=== PATIENT | female | born 1995 | race Caucasian/White ===

== ENCOUNTER 2020-01-21 18:15 | Emergency (ER) | payer SELFPAY ==
[~2020-01-21] VITALS: Ht 157.5 cm; Wt 55.0 kg
[2020-01-21 18:31] VITALS: TEMP 98.2
[2020-01-21 19:02] LABS: COLLECTION METHOD CLEAN CATCH
[2020-01-21 19:18] LABS: BASO # 0.1 (0.0-0.2); BASO % 1.7 % (0.0-2.0); EOS % 0.2 % (0-4.0); GRAN # 1.5 (1.4-6.5); GRAN % 37.1 % (42.2-75.2); HEMATOCRIT 42.8 % (37.0-47.0); HEMOGLOBIN 14.9 g/dl (12.5-16.0); LYMPH # 1.9 (1.2-3.4); LYMPH % 45.8 % (20.0-51.0); MEAN CELL VOLUME 91 fl (80.0-100.0); MEAN CORPUSCULAR HEMOGLOBIN 32 pg (27.0-31.0); MEAN CORPUSCULAR HGB CONC 35 g/dl (33.0-37.0); MEAN PLATELET VOLUME 9.3 fl (7.4-10.4); MONO # 0.6 (0.1-0.6); PLATELET COUNT 279 K/mm3 (130-400); RED BLOOD COUNT 4.72 M/mm3 (4.10-5.30); REDCELL DISTRIBUTION WIDTH-CV 12.7 % (11.5-14.5)
[2020-01-21 19:20] LABS: ALANINE AMINOTRANSFERASE 43 U/L (4-34); ALBUMIN 4.7 gm/dL (3.5-5.0); ALKALINE PHOSPHATASE 91 U/L (50-136); ANION GAP 12 mmol/L (7-16); AST,SGOT 51 U/L (15-37); BILIRUBIN,TOTAL 1.1 mg/dL (0.0-1.0); BLOOD UREA NITROGEN 7 mg/dL (7-17); CARBON DIOXIDE 25 mmol/L (22-30); CHLORIDE 104 mmol/L (98-107); CREATININE, serum 0.57 (0.52-1.25); GLUCOSE 95 mg/dL (74-106); LIPASE 48 U/L (23-300); POTASSIUM 3.8 mmol/L (3.4-5.0); SODIUM 141 mmol/L (137-145); TOTAL PROTEIN 7.6 gm/dL (6.4-8.2)
[2020-01-21 19:23] LABS: C-REACTIVE PROTEIN < 0.5 mg/dL (0.0-0.9)
[2020-01-21 19:25] LABS: ALCOHOL(ethanol),MEDICAL 379 mg/dL
[2020-01-21 19:34] LABS: TRICYCLIC ANTIDEPRESS URINE NEGATIVE
[2020-01-21 20:06] LABS: MUCOUS Present /lpf; PH 7 (5-8); URINE APPEARANCE Clear; URINE BACTERIA Rare /hpf; URINE BILIRUBIN Negative (NEGATIVE); URINE BLOOD 3+ (NEGATIVE); URINE COLOR Yellow; URINE GLUCOSE Negative (NEGATIVE); URINE KETONE Negative (NEGATIVE); URINE LEUKOCYTE ESTERASE Negative (NEGATIVE); URINE NITRATE Negative (NEGATIVE); URINE PROTEIN(semi-quant) 1+ (NEGATIVE); URINE RBC 0-2 /hpf
[2020-01-21 20:40] VITALS: BP 119/72; PULSE 102
== END 2020-01-21 20:35 | disposition home or self-care (01) ==
LOC: COL.ER 18:15
PROVIDERS: Physician Assistant
DX: R10.33 Periumbilical pain (principal); F10.129 Alcohol abuse with intoxication, unspecified; Y90.8 Blood alcohol level of 240 mg/100 ml or more
CPT/HCPCS: J1885; J7030

== ENCOUNTER 2020-02-04 02:14 | Inpatient (IN) | payer SELFPAY ==
[~2020-02-04] VITALS: Ht 157.5 cm; Wt 57.3 kg
[2020-02-04 02:45] LABS: BASO % 0.7 % (0.0-2.0); GRAN # 4.2 (1.4-6.5); GRAN % 74.9 % (42.2-75.2); HEMATOCRIT 45.1 % (37.0-47.0); HEMOGLOBIN 15.2 g/dl (12.5-16.0); LYMPH % 17.1 % (20.0-51.0); MEAN CELL VOLUME 94 fl (80.0-100.0); MEAN CORPUSCULAR HEMOGLOBIN 32 pg (27.0-31.0); MEAN CORPUSCULAR HGB CONC 34 g/dl (33.0-37.0); MEAN PLATELET VOLUME 9.5 fl (7.4-10.4); MONO # 0.4 (0.1-0.6); MONO % 6.8 % (1.7-9.3); PLATELET COUNT 233 K/mm3 (130-400); REDCELL DISTRIBUTION WIDTH-CV 13.3 % (11.5-14.5)
[2020-02-04 02:55] LABS: ACETAMINOPHEN < 10 ug/mL (10-30); ALANINE AMINOTRANSFERASE 465 U/L (4-34); ALBUMIN 5.1 gm/dL (3.5-5.0); ALKALINE PHOSPHATASE 134 U/L (50-136); ANION GAP 22 mmol/L (7-16); AST,SGOT 665 U/L (15-37); BILIRUBIN,TOTAL 1.1 mg/dL (0.0-1.0); BLOOD UREA NITROGEN 13 mg/dL (7-17); CALCIUM 8.7 mg/dL (8.4-10.2); CARBON DIOXIDE 17 mmol/L (22-30); CHLORIDE 104 mmol/L (98-107); CREATININE, serum 0.74 (0.52-1.25); GLUCOSE 75 mg/dL (74-106); MAGNESIUM 2.1 mg/dL (1.6-2.3); POTASSIUM 3.9 mmol/L (3.4-5.0); SALICYLATE < 1.0 mg/dL; SODIUM 143 mmol/L (137-145)
[2020-02-04 03:02] LABS: ALCOHOL(ethanol),MEDICAL 425 mg/dL
[2020-02-04 03:04] LABS: ARTERIAL BLD GAS O2 SATURATION 97.5 % (92-100); ARTERIAL BLD GAS TCO2 CT 14.5; ARTERIAL BLOOD GAS BASE EXCESS -10.3 (-2-2); ARTERIAL BLOOD GAS HCO3 13.7 meq/L (22-26); ARTERIAL BLOOD GAS PCO2 26.3 mmHg (35-45); ARTERIAL BLOOD GAS PO2 99.8 mmHg (80-100); ARTERIAL BLOOD GAS pH 7.34 (7.35-7.45)
[2020-02-04 03:50] LABS: INR 0.9 (0.8-3.0)
[2020-02-04 03:52] LABS: PARTIAL THROMBOPLASTIN TIME 24.9 SECONDS (26.0-37.0)
[2020-02-04 04:37] LABS: COLLECTION METHOD CLEAN CATCH
[2020-02-04 04:49] LABS: MUCOUS Present /lpf; PH 5 (5-8); SQUAMOUS EPITHELIAL 20-50 /hpf; URINE APPEARANCE Cloudy; URINE BACTERIA None Seen /hpf; URINE BILIRUBIN Negative (NEGATIVE); URINE BLOOD 3+ (NEGATIVE); URINE COLOR Yellow; URINE GLUCOSE Negative (NEGATIVE); URINE KETONE 1+ (NEGATIVE); URINE LEUKOCYTE ESTERASE Negative (NEGATIVE); URINE NITRATE Negative (NEGATIVE); URINE PROTEIN(semi-quant) 1+ (NEGATIVE); URINE RBC 0-2 /hpf; URINE UROBILINOGEN Negative (NEGATIVE)
[2020-02-04 04:50] LABS: ALBUMIN 4.4 gm/dL (3.5-5.0); CALCIUM 7.9 mg/dL (8.4-10.2); CREATININE, serum 0.66 (0.52-1.25); POTASSIUM 4.2 mmol/L (3.4-5.0)
[2020-02-04 04:55] LABS: TRICYCLIC ANTIDEPRESS URINE NEGATIVE
--- NOTE | 2020-02-04 05:28 | NUR ---
report received from BECKIE Knapp. awaiting fpr pt's arrival in unit. smokehouse operator contacted fof the banana bag and calcium gluconate.
[2020-02-04 05:39] VITALS: BP 139/95; PULSE 130; TEMP 97.8
--- NOTE | 2020-02-04 07:00 | NUR ---
Bedside shift report received from BECKIE Ponce. Patient is awake, alert, but restless. Patient has visible tremors and expresses that she is quite anxious. Vital reflect this with tachycardia and slightly elevated SBP in the 130's. Full assessment completed. Bed in lowest position. Side rails up x2. Call light and personal items within reach. Patient has no other complaints or concerns at this time other than being anxious.
--- NOTE | 2020-02-04 07:45 | NUR ---
REPORT GIVEN TO BECKIE TAFOYA.
--- NOTE | 2020-02-04 07:46 | NUR ---
0535 - PT ARRIVED IN UNIT, TRANSFERS INDEPENDENTLY, ALERT AND ORIENTED X 4, DENIES ANY PAIN OR SOB. PT ORIENTED TO ROOM AND VISITATION POLICY, VERBALIZED UNDERSTANDING. CALL LIGHT WITHIN REACH.
[2020-02-04 08:00] VITALS: BP 112/61; PULSE 118; TEMP 99
[2020-02-04 10:54] LABS: CALCIUM 8.1 mg/dL (8.4-10.2); CREATININE, serum 0.55 (0.52-1.25); POTASSIUM 4.2 mmol/L (3.4-5.0)
--- NOTE | 2020-02-04 11:34 | NUR ---
SW attended clinical rounds. The patient presented to the hospital, due to altered mental status and alcohol intoxication. The patient reports that she was on the phone with her parents and her father noticed something was wrong and contacted the police. She was then transferred to the hospital. The patient denies any suicidal thoughts. She denies any drug use. She reports that she only drinks alcohol three days a week. DONA then followed up with the patient to discuss discharge plan. The patient lives in [place] with her boyfriend, Denis. She works at a [employer]. Her parents: Fran (ph#[phone]) and Kay England live in [place]. She reports independence with ADLs and does not have any DME. The patient does not have a PCP. She was unsure if she wanted to get set up with a PCP or at a clinic at this time. She receives her medications at [facility] in [facility] and she reports no difficulties obtaining her meds. The patient is self pay. Financial Counseling has been consulted. The patient plans to return back home with her boyfriend upon discharge. SW discussed the patient's alcohol use and treatment options. The patient reports that this was a lesson and that she never wants this to happen again. She states that her boyfriend was able to get her drinking down to the three days a week, usually on the weekend, and that she is not interested in any outpatient/inpatient treatment at this time. She states that she had an around 2-3 months ago and still feels angry about that. She reports that last night she just kept drinking to suppress the anger and the thoughts of the . She reports she was talking to a counselor about this and that it was helpful. She states that she may reach out to this counselor after she discharges. She was not interested in any resources for alcohol treatment or counselor at this time. She reports that her parents plan to come from [place] and pick her up from the hospital when ready to discharge. SW to continue to follow as needed.
[2020-02-04 12:00] VITALS: BP 117/91; PULSE 113; TEMP 98.5
[2020-02-04 16:00] VITALS: BP 117/80; PULSE 97; TEMP 98.2
--- NOTE | 2020-02-04 19:50 | NUR ---
Bedside shift report given to BECKIE Mckee. Patient has had no acute changes throughout the shift and has no complaints or concerns. Care handed over at this time.
[2020-02-04 20:00] VITALS: BP 133/76; PULSE 126; TEMP 97.9
[2020-02-04 21:14] LABS: CALCIUM 8.5 mg/dL (8.4-10.2); CREATININE, serum 0.44 (0.52-1.25); POTASSIUM 3.8 mmol/L (3.4-5.0); TOTAL PROTEIN 6.7 gm/dL (6.4-8.2)
[2020-02-04 21:15] LABS: BASO % 1.1 % (0.0-2.0); EOS % 0.3 % (0-4.0); GRAN # 2.2 (1.4-6.5); GRAN % 60.8 % (42.2-75.2); HEMATOCRIT 37.2 % (37.0-47.0); LYMPH # 0.9 (1.2-3.4); MEAN CELL VOLUME 93 fl (80.0-100.0); MEAN CORPUSCULAR HEMOGLOBIN 32 pg (27.0-31.0); MEAN CORPUSCULAR HGB CONC 35 g/dl (33.0-37.0); MEAN PLATELET VOLUME 9.7 fl (7.4-10.4); MONO # 0.5 (0.1-0.6); MONO % 13.8 % (1.7-9.3); PLATELET COUNT 174 K/mm3 (130-400); RED BLOOD COUNT 4.01 M/mm3 (4.10-5.30); REDCELL DISTRIBUTION WIDTH-CV 13.6 % (11.5-14.5)
[2020-02-04 21:39] LABS: BILIRUBIN,DIRECT 0.1 mg/dL (0.0-0.4); BILIRUBIN,TOTAL 1.7 mg/dL (0.0-1.0)
[2020-02-04 21:40] LABS: BILIRUBIN UNCONJUGATED 1.6 mg/dL (0.0-1.1)
[2020-02-04 21:45] LABS: HEMOGLOBIN 12.9 g/dl (12.5-16.0)
[2020-02-05] VITALS (7 sets, daily range): BP systolic 117–131; BP diastolic 80–98; PULSE 69–112; TEMP 98–98.4
[2020-02-05 05:57] LABS: ANION GAP 6 mmol/L (7-16); CALCIUM 8.8 mg/dL (8.4-10.2); CARBON DIOXIDE 26 mmol/L (22-30); CHLORIDE 103 mmol/L (98-107); CREATININE, serum 0.44 (0.52-1.25); GLUCOSE 96 mg/dL (74-106); POTASSIUM 3.5 mmol/L (3.4-5.0); SODIUM 136 mmol/L (137-145)
[2020-02-05 06:05] LABS: BLOOD UREA NITROGEN < 2 mg/dL (7-17)
[2020-02-05 06:53] LABS: ALBUMIN 3.6 gm/dL (3.5-5.0); BILIRUBIN UNCONJUGATED 1.6 mg/dL (0.0-1.1); BILIRUBIN,DIRECT 0.1 mg/dL (0.0-0.4); BILIRUBIN,TOTAL 1.6 mg/dL (0.0-1.0); TOTAL PROTEIN 6.2 gm/dL (6.4-8.2)
--- NOTE | 2020-02-05 08:53 | NUR ---
Assessment completed, patient is drowsy but easy to arouse, vital signs stable, denies pain or discomfort, patient is pleasant and cooperative, she is eating a little of her breakfast but does not have a huge appetite, she scored 3/10 on CIWA this morning, lab results from this morning are relativley unchanged from yesterday, she requested a warm blanket and I discussed plan of care for the day, she verbalzied understanding and deneis other needs at his norman
--- NOTE | 2020-02-05 19:11 | NUR ---
Patient transferring to Medical room 312, I have given report to BECKIE Shahid, transferred patient up via wheelchair, I have also spoke with her father per patient request and updated on plan of care
--- NOTE | 2020-02-05 20:40 | NUR ---
This nurse went to check VS on patient at approximately 2014. At that time, patient was crying. This nurse shut door for privacy and sat with patient for a while, allowed patient to talk. Afterwards, patient stated that she felt better. Patient had said that she had just been holding in so many emotions, and they all seemed to turn to anger, and just needed to cry. Denies having pain and discomfort. Did state that she was feeling anxious. VS obtained, and patient given 0.5 mg IV Ativan per order for detox protocol. Peripher IV to left wrist and left AC. Denies SOB and dyspnea. LS CTA. Respirations even and unlabored. HRR. Telemetry in place. Capillary refill less than 3 seconds. Non-tenting skin turgor. BSAx4. Abdomen soft and non-tender. No edema. Voices no questions, needs, or concerns at this time. Given snacks as requested. Encouraged to call for assistance if she needed anything, even if it was just to talk. Patient thankful and voiced understanding. In bed with call light within reach.
--- NOTE | 2020-02-05 21:20 | NUR ---
Checked on patient to see how she was doing. Patient smiling, stated that she is feeling ok, and denies having any questions, needs, or concerns at this time. In recliner. Call light within reach.
--- NOTE | 2020-02-05 22:39 | NUR ---
Patient states that she is feeling ok at this time, just a little nervous about the next few nights. States that she will be home alone at night. Encouraged to see if her boyfriend or parents can stay with her, and stated she would think about it.
[2020-02-06 00:39] VITALS: BP 124/86; PULSE 82; TEMP 98.3
[2020-02-06 02:26] VITALS: BP 115/101; PULSE 103; TEMP 98.9
--- NOTE | 2020-02-06 02:34 | NUR ---
Patient scored a 5 on last alcohol detox protocol, but is not wanting PRN Ativan at this time, stating that she is feeling well and does not think she needs it. Encouraged to let this nurse know if she wants it, and voiced understanding.
[2020-02-06 04:00] VITALS: BP 126/100; PULSE 125; TEMP 98.8
[2020-02-06 05:33] VITALS: BP 114/86; PULSE 100; TEMP 97.9
--- NOTE | 2020-02-06 05:49 | NUR ---
Patient has been given PRN Ativan twice this shift. Denies having pain and discomfort. Awake most of the night, but stated that it was because she had been sleeping all day. Continues to report that she is nervous about going home and being alone at night. Resting in bed with call light within reach.
[2020-02-06 08:05] VITALS: BP 111/68; PULSE 84; TEMP 98.1
--- NOTE | 2020-02-06 08:13 | NUR ---
PATIENT SITTING UP IN BED PLAYING ON PHONE. ATTITUDE CALM AND PLEASANT. A/O X4. DENIES C/O PAIN OR DISCOMFORT. DENIES NEEDS OR CONCERNS.
--- NOTE | 2020-02-06 10:30 | NUR ---
The patient is to tentatively discharge today, 02/05. DONA contacted [facility] for a follow-up appointment. The appointment is 02/10 at 10:30. DONA contacted [facility] to set up appointment. Modesta from [facility] states she will do the initial intake and initial telephealth session today at 2:00 and 3:00, respectively. DONA informed the patient. There are no additional needs at this time.
--- NOTE | 2020-02-06 11:55 | NUR ---
PATIENT DC TO HOME ACCOMPANIED BY PARENTS @ 1140. AMBULATED OFF UNIT ACCOMPANIED BY THIS NURSE. PRINTED DC INSTRUCTIONS REVIEWED WITH PATIENT. ALL QUESTIONS AND CONCERNS ADRESSED DURING REVIEW.
== END 2020-02-06 11:40 | disposition home or self-care (01) | DRG 918 ==
LOC: COL.ER 02:14 → IMCU 04:30 → ICU 02-05 10:55 → IMCU 02-05 10:55 → MEDICAL 02-05 19:18
PROVIDERS: Emergency Medicine; Nurse Practitioner; Nurse Practitioner Family; ADMIT Student in an Organized Health Care Education/Training Program
DX: T51.0X2A Toxic effect of ethanol, intentional self-harm, initial encounter (principal); E87.2 Acidosis; R65.10 Systemic inflammatory response syndrome (SIRS) of non-infectious origin without acute organ dysfunction; E87.1 Hypo-osmolality and hyponatremia; R45.851 Suicidal ideations; F10.14 Alcohol abuse with alcohol-induced mood disorder; F10.129 Alcohol abuse with intoxication, unspecified; Y90.8 Blood alcohol level of 240 mg/100 ml or more; R00.0 Tachycardia, unspecified; E16.2 Hypoglycemia, unspecified; E83.51 Hypocalcemia; R74.0 Nonspecific elevation of levels of transaminase and lactic acid dehydrogenase [LDH]; F18.10 Inhalant abuse, uncomplicated
CPT/HCPCS: 99222-AI; 99231-AI; 99239; J0610; J1650; J2060; J3411; J3475; J7030

== ENCOUNTER 2021-04-13 15:33 | Emergency (ER) | payer SELFPAY ==
[~2021-04-13] VITALS: Ht 157.5 cm; Wt 59.1 kg
[2021-04-13 15:50] VITALS: TEMP 98.3
[2021-04-13 17:10] LABS: COLLECTION METHOD CLEAN CATCH
[2021-04-13 17:15] LABS: MUCOUS Present /lpf; PH 5 (5-8); URINE APPEARANCE Clear; URINE BACTERIA Rare /hpf; URINE BILIRUBIN Negative (NEGATIVE); URINE BLOOD 1+ (NEGATIVE); URINE COLOR Yellow; URINE GLUCOSE Negative (NEGATIVE); URINE KETONE 1+ (NEGATIVE); URINE LEUKOCYTE ESTERASE Negative (NEGATIVE); URINE NITRATE Negative (NEGATIVE); URINE PROTEIN(semi-quant) 2+ (NEGATIVE); URINE RBC 0-2 /hpf; URINE UROBILINOGEN Negative (NEGATIVE)
[2021-04-13 17:23] LABS: TRICYCLIC ANTIDEPRESS URINE NEGATIVE
[2021-04-13 18:58] LABS: BASO % 0.6 % (0.0-2.0); EOS # 0.1 (0.0-0.7); EOS % 1.7 % (0-4.0); GRAN # 3.6 (1.4-6.5); GRAN % 54.3 % (42.2-75.2); HEMATOCRIT 47.5 % (37.0-47.0); HEMOGLOBIN 16.2 g/dl (12.5-16.0); LYMPH # 2.5 (1.2-3.4); LYMPH % 38.4 % (20.0-51.0); MEAN CELL VOLUME 93 fl (80.0-100.0); MEAN CORPUSCULAR HEMOGLOBIN 32 pg (27.0-31.0); MEAN CORPUSCULAR HGB CONC 34 g/dl (33.0-37.0); MEAN PLATELET VOLUME 9.4 fl (7.4-10.4); MONO # 0.3 (0.1-0.6); MONO % 4.7 % (1.7-9.3); PLATELET COUNT 282 K/mm3 (130-400); REDCELL DISTRIBUTION WIDTH-CV 12.5 % (11.5-14.5)
[2021-04-13 19:09] LABS: ALBUMIN 5.2 gm/dL (3.5-5.0); CALCIUM 9.1 mg/dL (8.4-10.2); CREATININE, serum 0.59 (0.52-1.25); MAGNESIUM 2.4 mg/dL (1.6-2.3); POTASSIUM 4.3 mmol/L (3.4-5.0); TOTAL PROTEIN 8.8 gm/dL (6.4-8.2)
[2021-04-13 21:25] VITALS: BP 121/84; PULSE 96
== END 2021-04-13 21:29 | disposition home or self-care (01) ==
LOC: COL.ER 15:33
PROVIDERS: Emergency Medicine; Nurse Practitioner
DX: F10.129 Alcohol abuse with intoxication, unspecified (principal); F17.210 Nicotine dependence, cigarettes, uncomplicated; Y90.8 Blood alcohol level of 240 mg/100 ml or more
CPT/HCPCS: J7030

== ENCOUNTER 2022-04-21 10:40 | Emergency (ER) | payer MEDICAID ==
[~2022-04-21] VITALS: Ht 157.5 cm; Wt 70.0 kg
[2022-04-21 10:42] VITALS: TEMP 97.6
[2022-04-21 11:29] LABS: BASO % 0.5 % (0.0-2.0); EOS # 0.1 K/mm3 (0.0-0.7); EOS % 0.6 % (0.0-4.0); GRAN # 6.5 K/mm3 (1.4-6.5); GRAN % 73.8 % (42.2-75.2); HEMOGLOBIN 11.2 g/dl (12.5-16.0); LYMPH # 1.6 K/mm3 (1.2-3.4); LYMPH % 18.1 % (20.0-51.0); MEAN CELL VOLUME 93 fl (80.0-100.0); MEAN CORPUSCULAR HEMOGLOBIN 32 pg (27-31); MEAN CORPUSCULAR HGB CONC 34 g/dl (33.0-37.0); MEAN PLATELET VOLUME 10.1 fl (7.4-10.4); MONO # 0.6 K/mm3 (0.1-0.6); MONO % 6.4 % (1.7-9.3); PLATELET COUNT 223 K/mm3 (130-400); RED BLOOD COUNT 3.56 M/mm3 (4.10-5.30); REDCELL DISTRIBUTION WIDTH-CV 11.9 % (11.5-14.5)
[2022-04-21 11:34] LABS: HEMATOCRIT 33.2 % (37.0-47.0)
[2022-04-21 11:46] LABS: ALBUMIN 2.7 gm/dL (3.5-5.0); ANION GAP 9 mmol/L (7-16); BLOOD UREA NITROGEN 11 mg/dL (7-19); CALCIUM 8.4 mg/dL (8.4-10.2); CARBON DIOXIDE 22 mmol/L (22-29); CHLORIDE 108 mmol/L (98-107); CREATININE, serum 0.54 mg/dL (0.57-1.11); GLUCOSE 78 mg/dL (70-99); MAGNESIUM 1.7 mg/dL (1.6-2.6); POTASSIUM 3.7 mmol/L (3.5-4.5); SODIUM 139 mmol/L (136-145)
[2022-04-21 12:10] LABS: TROPONIN-I < 0.010 ng/mL (0.00-0.033)
[2022-04-21 13:17] VITALS: BP 108/72; PULSE 80
== END 2022-04-21 13:20 | disposition home or self-care (01) ==
LOC: COL.ER 10:40
PROVIDERS: Emergency Medicine
DX: O99.891 Other specified diseases and conditions complicating pregnancy (principal); R55 Syncope and collapse; Z3A.33 33 weeks gestation of pregnancy
CPT/HCPCS: J7030

== ENCOUNTER 2022-05-15 09:19 | Emergency (ER) | payer MEDICAID ==
[~2022-05-15] VITALS: Ht 157.5 cm; Wt 71.4 kg
[2022-05-15 09:32] VITALS: TEMP 98
[2022-05-15 10:05] LABS: COLLECTION METHOD CLEAN CATCH
[2022-05-15 10:11] LABS: BASO % 0.4 % (0.0-2.0); EOS % 0.2 % (0.0-4.0); GRAN # 7.6 K/mm3 (1.4-6.5); GRAN % 80.7 % (42.2-75.2); HEMOGLOBIN 11.7 g/dl (12.5-16.0); LYMPH # 1.1 K/mm3 (1.2-3.4); LYMPH % 12.1 % (20.0-51.0); MEAN CELL VOLUME 90 fl (80.0-100.0); MEAN CORPUSCULAR HEMOGLOBIN 30 pg (27-31); MEAN CORPUSCULAR HGB CONC 33 g/dl (33.0-37.0); MEAN PLATELET VOLUME 10.5 fl (7.4-10.4); MONO # 0.6 K/mm3 (0.1-0.6); MONO % 6.1 % (1.7-9.3); PLATELET COUNT 230 K/mm3 (130-400); RED BLOOD COUNT 3.92 M/mm3 (4.10-5.30)
[2022-05-15 10:13] LABS: HEMATOCRIT 35.1 % (37.0-47.0)
[2022-05-15 10:18] LABS: URINE BACTERIA Rare /hpf (NONE SEEN); URINE WBC 0-2 /hpf (0-2)
[2022-05-15 10:19] LABS: PH 7.5 (5.0-8.5); URINE APPEARANCE Clear (CLEAR/HAZY); URINE COLOR Yellow (YELLOW); URINE GLUCOSE Negative (NEGATIVE); URINE KETONE Negative (NEGATIVE); URINE PROTEIN(semi-quant) Negative (NEGATIVE)
[2022-05-15 10:20] LABS: URINE BLOOD TRACE-INTACT (NEGATIVE); URINE NITRATE Negative (NEGATIVE); URINE UROBILINOGEN 0.2 E.U/dL (0.2-1.0)
[2022-05-15 10:28] LABS: ALBUMIN 2.8 gm/dL (3.5-5.0); BILIRUBIN,TOTAL 0.9 mg/dL (0.2-1.2); C-REACTIVE PROTEIN 0.09 mg/dL (0.00-0.50); CALCIUM 9.3 mg/dL (8.4-10.2); CREATININE, serum 0.62 mg/dL (0.57-1.11); POTASSIUM 3.9 mmol/L (3.5-4.5); TOTAL PROTEIN 6.2 gm/dL (6.2-8.1)
--- NOTE | 2022-05-15 10:32 | NUR ---
1010- Pt placed on EFM and TOCO, tracing well. Pt is a G2L0 at 38+3, Pt of Dr Harley. Pt denies VB/LOF/UCs. +FM per Pt and heard by this RN on EFM. 1032- Category I FHR tracing, accels x2 and no decels. EFM and TOCO off. This RN to nurses station, updates ED physician.
[2022-05-15 10:45] LABS: ERYTHROCYTE SEDIMENTATION RATE 32 mm/hr (0-20)
[2022-05-15 11:30] VITALS: BP 110/72; PULSE 82
== END 2022-05-15 11:32 | disposition home or self-care (01) ==
LOC: COL.ER 09:19
PROVIDERS: Emergency Medicine
DX: O26.893 Other specified pregnancy related conditions, third trimester (principal); R10.9 Unspecified abdominal pain; O99.113 Other diseases of the blood and blood-forming organs and certain disorders involving the immune mechanism complicating pregnancy, third trimester; R70.0 Elevated erythrocyte sedimentation rate; D72.828 Other elevated white blood cell count; Z3A.37 37 weeks gestation of pregnancy

== ENCOUNTER 2022-06-07 08:48 | Inpatient (IN) | payer MEDICAID ==
[~2022-06-07] VITALS: Ht 157.5 cm; Wt 71.4 kg
--- NOTE | 2022-06-07 19:05 | NUR ---
1905- PT PRESENTS TO LDR FOR SCHEDULED CYTOTEC INDUCTION. AMBULATORY TO ROOM LR6, PT CHANGES INTO HER OWN GOWN. 1910- ROLES CALLED CHARTED. ORDERS FOR INDUCTION GIVEN. 1913- EFM X2 APPLIED. PT DENIES LEAKING FLUID, VAGINAL BLEEDING OR CONSISTENT CONTRACTIONS. PT IS FEELING BABY MOVE NORMALLY. PLAN OF CARE FOR INDUCTION DISCUSSED AND QUESTIONS ANSWERED. 0- IV START TO LEFT HAND CHARTED. BLOOD DRAWN FOR LAB. LR BOLUS STARTED. 2014- CONSENTS SIGNED. 2019- SVE BY THIS NURSE , CYTOTEC PLACED ORDERED. DISCUSSED WITH PT PLAN FOR STAYING RECLINED FOR 2 HOURS, WHEN SHE CAN POSSIBLE HAVE A SNACK, AND QUESTIONS ARE ANSWERED. 2044- NURSING ADMISSION HISTORY AND ASSESSMENT COMPLETE. 2217- PT STATES SHE IS FEELING CRAMPY AT THIS TIME. SHE NEEDS TO GET UP TO BATHROOM. PT ALSO REQUESTS SOME TYLENOL FOR DISCOMFORT. DISCUSSED PAIN MANAGEMENT OPTIONS WITH PT. SHE DOES NOT HAVE ANY TYLENOL ORDERED BUT IS WILLING TO TRY VISTARIL AT THIS TIME INSTEAD. 2225- PT BACK ON MONITORS. 2230- VISTARIL AND JELLO PROVIDED PER PT REQUEST. 2250- PT UP TO BATHROOM AGAIN. STATES SHE FEELS BETTER STANDING AT SIDE OF BED. BIRTHING BALL OFFERED AND PT TRIES THIS BUT DOES NOT LIKE IT. ALSO OFFERED CHAIRS, FOOTSTOOLS AND OTHER POSITIONING DEVICES, BUT PT PREFERS TO JUST STAND. SHE IS NOW BREATHING THROUGH HER CONTRACTIONS SOME. 2305- PT BACK ON MONITORS. SHE CONTINUES TO STAND AT SIDE OF BED. 2318- PT REQUESTS TO GO BACK TO BATHROOM, STATES SHE FEELS BETTER WHEN SHE IS ON THE TOILET. 2342- PT BACK ON MONITORS STANDING AT EDGE OF BED. 2350- PT HAS EPISODE OF VOMITTING. DISCUSSED WITH PT PLAN FOR CHECKING HER CERVIX AROUND 0020 AND THEN BEING ABLE TO DETERMINE WHAT OTHER PAIN MANAGEMENT OPTIONS THE PT HAS AT THAT TIME. PT IS AGREEABLE WITH THIS PLAN. 2357- PT BACK UP TO BATHROOM. 3- PT BACK IN BED ON MONITORS. 34- SVE BY THIS NURSE . NURSE DISCUSSES PAIN MANAGEMENT OPTIONS INCLUDING EPIDURAL AND IV PAIN MEDICATION. PT WISHES TO PROCEED WITH PAIN MEDICAITON AT THIS TIME. 56- ROLES CALLD CHARTED. ORDERS RECEIVED.
[2022-06-07 19:30] VITALS: BP 126/84; PULSE 114; TEMP 98.9
[2022-06-07 19:53] LABS: BASO % 0.5 % (0.0-2.0); EOS % 0.4 % (0.0-4.0); GRAN # 5.4 K/mm3 (1.4-6.5); GRAN % 69.5 % (42.2-75.2); HEMOGLOBIN 12.1 g/dl (12.5-16.0); LYMPH # 1.7 K/mm3 (1.2-3.4); LYMPH % 21.5 % (20.0-51.0); MEAN CELL VOLUME 89 fl (80.0-100.0); MEAN CORPUSCULAR HEMOGLOBIN 30 pg (27-31); MEAN CORPUSCULAR HGB CONC 34 g/dl (33.0-37.0); MEAN PLATELET VOLUME 10.9 fl (7.4-10.4); MONO # 0.6 K/mm3 (0.1-0.6); MONO % 7.6 % (1.7-9.3); PLATELET COUNT 223 K/mm3 (130-400); RED BLOOD COUNT 3.99 M/mm3 (4.10-5.30); REDCELL DISTRIBUTION WIDTH-CV 14.1 % (11.5-14.5)
[2022-06-07 19:54] LABS: HEMATOCRIT 35.6 % (37.0-47.0)
[2022-06-07 20:30] VITALS: BP 125/83; PULSE 80
[2022-06-07] MEDS ORDERED: QUALITY CHOICE1 TA7 (20:51)
[2022-06-07] MEDS ORDERED: MASON NATURAL2000 IU PO (20:52)
[2022-06-07] MEDS ORDERED: PEPCID AC 10MG10 MG PO (20:52)
[2022-06-07 21:00] VITALS: BP 121/84; PULSE 81
[2022-06-07 21:30] VITALS: BP 120/85; PULSE 85
[2022-06-07 22:00] VITALS: BP 124/82; PULSE 77
[2022-06-07 22:30] VITALS: BP 135/94; PULSE 81
[2022-06-08] VITALS (67 sets, daily range): BP systolic 94–147; BP diastolic 53–99; PULSE 68–122; TEMP 97.2–99
--- NOTE | 2022-06-08 01:11 | NUR ---
0111- PT BACK TO BED AND ON MONITORS. PT UPDATED ON PLAN FOR EPIDURAL AT THIS TIME AND PT IS IN AGREEMENT WITH THIS. LR BOLUS STARTED FOR EPIDURAL PLACEMENT. 0130- BASSAM ELDER CALLED FOR EPIDURAL. 0140- PT UP TO BATHROOM. 0145- BASSAM ELDER AT BEDSIDE FOR EPIDURAL. PT POSITIINED SITTING UP ON EDGE OF BED. BASSAM DISCUSSES RISK AND BENIFITS. TIME OUT COMPLETE. 0155- EPIDURAL SINGLE SHOT. 0205- EPIDURAL PROCEDURE COMPLETE. PT TOLERATED WELL. PT POSITIONED IN LEFT TILT WITH PILLOWS FOR COMFORT. MONITORS ADJUSTED. 0345- PT REPORTS SHE IS COMFORTABLE WITH HER EPIDURAL. SVE BY THIS NURSE . BLOOM CATHETER PLACED WITHOUT DIFFICULTY. PT POSITIONED IN RIGHT TILT FOR HER COMFORT. 0440- PT SITTING UP INTERMITTENTLY FOR HER COMFORT. EFM TRACING INTERMITTENTLY. 0455- PT COMPLAINS OF LEFT LEG PAIN. SHE WOULD LIKE TO TURN TO LEFT TILT AGAIN. PT ASSISTED TO LEFT TILT AND MONITORS ADJUSTED. 0550- NURSE TO BEDSIDE. PT STILL COMPLAINING OF LEFT LEG AND NOW BACK PAIN. SHE IS BREATHING THROUGH CONTRACTIONS A LITTLE. ENCOURAGED TO USE EPIDURAL FAMILY SERVICES SPECIALIST BUTTON. SVE BY THIS NURSE UNCHANGED. PT SITTING UP IN BED. SHE WOULD LIKE ANESTHESIA TO SEE HER FOR HELP WITH HER PAIN. 0603- BASSAM ELDER CALLED TO SEE PT. SHE GOES TO BEDSIDE FOR EVALUATION.
--- NOTE | 2022-06-08 08:10 | NUR ---
0810 ROLES AT BEDSIDE FOR SVE AND AROM. SVE 5/100/-1. AROM MINIMAL CLEAR FLUID AT THIS TIME. PT TOLERATED WELL.
--- NOTE | 2022-06-08 08:24 | NUR ---
0820 JERROD ALMANZA, AT BEDSIDE TO REPLACE EPIDURAL PER PT REQUEST AND PAIN LEVEL OF 9/10. LR BOLUS RUNNING PER PROTOCOL, PULSE OX AND BP CUFF IN PLACE, PT SITTING ON EDGE OF BED, EFM TRACING CAT 1 AT THIS TIME. 0824 SINGLE SHOT ADMINISTERED PER JERROD ALMANZA. PT TOLERATED WELL, VITAL SIGNS STABLE. EFM TRACING CAT 1. 0826 PT LYING IN BED COMFORTABLE, LL. VITAL SIGNS STABLE, EFM TRACING CAT 1. WILL CONTINUE TO MONITOR.
--- NOTE | 2022-06-08 09:56 | NUR ---
0956 THIS RN AT BEDSIDE DUE TO DIFFICULTY WITH EFM TRACING. PAPER TRACING INTERMITTENTLY BUT AUDIBLE DECELERATIONS. MATERNAL PULSE OX ON, PITOCIN OFF. SVE AT THIS TIME 8/100/-1. THIS EVENT LASTED 7 MINUTES WITH BRIEF PERIODS OF RECOVERY. PT WAS SITTING UP SO TURNED LEFT LATERAL. PT DID NOT TOLERATE LEFT LATERAL SO WAS TURNED RIGHT LATERAL. BABY RECOVERED WELL. DR. MARSHALL NOTIFIED. WILL CONTINUE TO MONITOR.
--- NOTE | 2022-06-08 13:31 | NUR ---
1331 PT COMPLETE/ +1 STATION AND FEELS SLIGHT PRESSURE. 1343 STARTED PUSHING WITH PT, DR. MARSHALL AWARE. 1413 BLOOM CATHETER REMOVED AT THIS TIME. [address] MARSHALL FOR DELIVERY. [address]13 DR[address] MARSHALL AT BEDSIDE. ROOM SET UP FOR DELIVERY. NURSERY AND CHARGE AWARE. 1620 OF VIABLE FEMALE PER DR. MARSHALL. CORD CUT, INFANT PLACED ON MATERNAL CHEST AND CARE ASSUMED BY Emerald SANTOYO RN. [address] MARSHALL. FUNDUS FIRM AND AT UMBILICUS. LOCHIA WNL. VITAL SIGNS STABLE. DR. MARSHALL BEGINS REPAIRING SECOND DEGREE PERINEAL LACERATION. PT TOLERATED WELL. 1626 PT BED PUT BACK TOGETHER, ICE PACK APPLIED TO PERINEUM. FUNDUS AT THE UMBILICUS, LOCHIA SCANT. VITAL SIGNS STABLE. WILL CONTINUE TO MONITOR.
[2022-06-08 16:44] LABS: UMBILICAL ARTERY ABG PCO2 42.1 mmHg (30-65); UMBILICAL ARTERY ABG PO2 21.8 mmHg (50-75)
[2022-06-08 16:47] LABS: UMBILICAL ARTERY ABG pH 7.28 (7.28-7.45)
[2022-06-09 04:15] VITALS: BP 124/86; PULSE 78; TEMP 97.8
[2022-06-09 07:40] VITALS: BP 114/78; PULSE 75; TEMP 97.5
[2022-06-09] MEDS ORDERED: IBU800 M1 PO (08:08)
--- NOTE | 2022-06-09 10:07 | NUR ---
Initial visit; Parents thanked Pit Slagman for offering congratulations and God's blessings for the of their daughter. Pit Slagman thanked family for choosing [facility].
[2022-06-09 16:45] VITALS: BP 115/80; PULSE 78; TEMP 97.9
[2022-06-09 19:10] VITALS: BP 114/84; PULSE 91; TEMP 98
[2022-06-10 08:50] VITALS: BP 125/78; PULSE 79; TEMP 97.7
== END 2022-06-10 14:30 | disposition home or self-care (01) | DRG 807 ==
LOC: OB 08:48 → LDR 18:58 → OB 06-08 20:15
PROVIDERS: ADMIT Obstetrics & Gynecology
PROC: 10E0XZZ Delivery of Products of Conception, External Approach (ICD-10-PCS; principal; 2022-06-08)
PROC: 0KQM0ZZ Repair Perineum Muscle, Open Approach (ICD-10-PCS; 2022-06-08)
PROC: 10907ZC Drainage of Amniotic Fluid, Therapeutic from Products of Conception, Via Natural or Artificial Opening (ICD-10-PCS; 2022-06-08)
DX: O48.0 Post-term pregnancy (principal); Z37.0 Single live birth; Z3A.41 41 weeks gestation of pregnancy; O70.1 Second degree perineal laceration during delivery
CPT/HCPCS: J2590; J2795; J7120